=== PATIENT | male | born 1965 | race Caucasian/White ===

== ENCOUNTER 2024-11-18 09:53 | Emergency (ER) | payer BC ==
[2024-11-18] MEDS ORDERED: Diphtheria,Pertussis(Acell),Tetanus Vaccine 0.5 ML Syringe IM ONE (11:33)
== END 2024-11-18 11:58 | disposition home or self-care (01) ==
LOC: JP.ED 09:53 → EDSEX 09:53 → JP.ED 11:58
DX: S90.851A Superficial foreign body, right foot, initial encounter (principal); Z23 Encounter for immunization; W45.8XXA Other foreign body or object entering through skin, initial encounter; Y93.89 Activity, other specified
CPT/HCPCS: 28190; 64400; 90471; 99282; 99283; J2003